=== PATIENT | male | born 1980 ===

== ENCOUNTER 2018-09-07 12:48 | Emergency (ER) | payer BC ==
[~2018-09-07] VITALS: Ht 180.3 cm; Wt 83.9 kg
[2018-09-07] MEDS ORDERED: OXYCONTIN10 M1 PO (13:13)
[2018-09-07] MEDS ORDERED: LYRICA100 MG PO (13:13)
[2018-09-07] MEDS ORDERED: PERCOCET 10-321 EACH PO (13:14)
== END 2018-09-07 14:54 | disposition home or self-care (01) ==
LOC: ER 12:48
DX: G89.21 Chronic pain due to trauma (principal); M54.5 Low back pain; M54.2 Cervicalgia

== ENCOUNTER 2019-01-03 15:31 | Emergency (ER) | payer BC ==
[~2019-01-03] VITALS: Ht 180.3 cm; Wt 83.9 kg
[~2019-01-03 15:31] MED LIST: LYRICA100 MG PO; OXYCONTIN10 M1 PO; PERCOCET 10-321 EACH PO
[2019-01-03] MEDS ORDERED: NORFLEX (15:43)
== END 2019-01-03 20:17 | disposition home or self-care (01) ==
LOC: ER 15:31
DX: G89.29 Other chronic pain (principal); M54.41 Lumbago with sciatica, right side